=== PATIENT | female | born 1995 | race Two or more races ===

== ENCOUNTER 2025-05-01 18:26 | Emergency (ER) | payer BC, OTHER ==
[~2025-05-01] VITALS: Ht 167.6 cm; Wt 79.4 kg
[2025-05-01 18:59] VITALS: BP 134/76; TEMP 98.1; O2SAT 98
== END 2025-05-01 20:17 | disposition left against medical advice (07) ==
LOC: ER 18:28
DX: R53.1 Weakness (principal); G47.00 Insomnia, unspecified; Z53.21 Procedure and treatment not carried out due to patient leaving prior to being seen by health care provider

== ENCOUNTER 2025-05-06 02:02 | Emergency (ER) | payer BC ==
[~2025-05-06] VITALS: Ht 167.6 cm; Wt 79.4 kg
--- NOTE | 2025-05-06 02:15 | NUR ---
GOLDIE CC FACIAL PAIN AND SWELLING LEFT SIDE
[2025-05-06] MEDS ORDERED: AMOX-430 PO (02:23)
[2025-05-06] MEDS ORDERED: AMOX/CLAVULANATE 875 MG TABLET ONE (02:27)
[2025-05-06] MEDS: AMOX/CLAVULANATE 875 MG TABLET PO ONE (02:30)
[2025-05-06 02:31] VITALS: BP 136/70; TEMP 98.5; O2SAT 99
--- NOTE | 2025-05-06 02:31 | NUR ---
Patient discharged to home in stable condition. Written and verbal after care instructions given. Patient verbalizes understanding of instruction.
== END 2025-05-06 02:31 | disposition home or self-care (01) ==
LOC: ER 02:11
DX: K04.7 Periapical abscess without sinus (principal)